=== PATIENT | female | born 1960 | race Caucasian/White ===

== ENCOUNTER 2018-01-11 19:16 | Emergency (ER) | payer OTHER ==
[~2018-01-11] VITALS: Ht 172.7 cm; Wt 60.0 kg
[2018-01-11 19:28] VITALS: BP 108/62; PULSE 76; RESP 15; TEMP 98.7; O2SAT 98
[2018-01-11] MEDS ORDERED: BUPR100CR PO (19:28)
[2018-01-11] MEDS ORDERED: SODIUM CHLORIDE 0.9% FLUSH 10 ML FLUSH IVF PRN (19:45)
[2018-01-11] MEDS ORDERED: SODIUM CHLORID 0.9% 500 ML INJ 500 ML IV ONE (19:45)
[2018-01-11 20:00] LABS: BASOPHIL % 0.4 % (0.0-2.0); EOSINOPHIL % 0.4 % (0.0-4.0); HEMATOCRIT 37.1 % (35.0-46.0); HEMOGLOBIN 13.2 GM/DL (11.6-15.3); LYMPH % 18.3 % (9.0-44.0); LYMPHOCYTE # 2.4 TH/MM3 (1.0-4.8); MEAN CELL VOLUME 93.2 FL (80.0-100.0); MEAN CORPUSCULAR HEMOGLOBIN 33.1 PG (27.0-34.0); MEAN CORPUSCULAR HGB CONC 35.5 % (32.0-36.0); MEAN PLATELET VOLUME 7.6 FL (7.0-11.0); MONO % 11.1 % (0.0-8.0); MONOCYTE # 1.4 TH/MM3 (0-0.9); NEUT % 69.8 % (16.0-70.0); PLATELET COUNT 265 TH/MM3 (150-450); RED BLOOD COUNT 3.99 MIL/MM3 (4.00-5.30); RED CELL DISTRIBUTION WIDTH 13.4 % (11.6-17.2); WHITE BLOOD COUNT 12.9 TH/MM3 (4.0-11.0)
[2018-01-11 20:08] LABS: PROTHROMBIN TIME - PATIENT 9.7 SEC (9.8-11.6)
--- NOTE | 2018-01-11 20:14 | RADRPT ---
EXAM DATE/TIME: 01/11/2018 19:57 [facility] COMPARISON: No previous studies available for comparison. INDICATIONS : Chest pain. MEDICAL HISTORY : None. SURGICAL HISTORY : None. ENCOUNTER: Initial ACUITY: 1 day PAIN SCORE: 5/10 LOCATION: Bilateral chest FINDINGS: Cardia megaly. Atelectasis versus scarring at the bases. No consolidation or effusion. Osseous struct ures are intact. Aortic calcification. CONCLUSION: Basilar atelectasis versus scarring. Tonio Muhammad MD on January 11, 2018 at 20:11 Board Certified Radiologist. This report was verified electronically.
--- NOTE | 2018-01-11 20:22 | PD ---
HPI Chief Complaint: Chest Pain Time Seen by Provider: 19:27 Travel History International Travel<30 days: No Contact w/Intl Traveler<30days: No Traveled to known affect area: No History of Present Illness HPI Patient is a 57-year-old female presenting to emergency department for evaluation of chest pain. 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 She sat in the cockpit and put oxygen on, she reports that the symptoms resolved. On the flight back to the [facility] pain developed again, she again put oxygen on but the flight was diverted here. Patient was given 1 aspirin and 2 nitroglycerin sublingually. She currently reports her pain is a 2 out of 10, symptom onset was fairly sudden, symptoms were moderate in severity. Patient's symptoms were alleviated with oxygen administration. Patient denies any medical history other than a heart murmur. She denies any activity intolerance. She is a current smoker but denies any illicit drug use. Patient denies any significant family history. No early heart disease in either parent or siblings. PFSH Past Medical History Medical History: Denies Significant Hx Medical other: Yes (Murmur) ?: Not Family History Family History: Negative Social History Alcohol Use: No Tobacco Use: Yes Substance Use: No Allergies-Medications (Allergen,Severity, Reaction): Coded Allergies: No Known Allergies (Verified Allergy, Unknown, 01/11/18) Reported Meds & Prescriptions Reported Meds & Active Scripts Active Reported Wellbutrin SR 12 HR (Bupropion HCl) 100 Mg Tab 100 Mg PO Q12HR Review of Systems Except as stated in HPI: all other systems reviewed are Neg Cardiovascular: Positive: Chest Pain or Discomfort Respiratory: Positive: Shortness of Breath Physical Exam Narrative GENERAL: Well-developed, well-nourished, alert female. Presenting in no acute distress. SKIN: Warm and dry. HEAD: Atraumatic. Normocephalic. EYES: Pupils equal and round. No scleral icterus. No injection or drainage. ENT: No nasal bleeding or discharge. Mucous membranes pink and moist. NECK: Trachea midline. No JVD. CARDIOVASCULAR: Regular rate and rhythm. 3/6 systolic murmur RESPIRATORY: No accessory muscle use. Clear to auscultation. Breath sounds equal bilaterally. GASTROINTESTINAL: Abdomen soft, non-tender, nondistended. Hepatic and splenic margins not palpable. MUSCULOSKELETAL: Extremities without clubbing, cyanosis, or edema. No obvious deformities. NEUROLOGICAL: Awake and alert. No obvious cranial nerve deficits. Motor grossly within normal limits. Five out of 5 muscle strength in the arms and legs. Normal speech. PSYCHIATRIC: Appropriate mood and affect; insight and judgment normal. Data Data Last Documented VS Vital Signs Date Time Temp Pulse Resp B/P (MAP) Pulse Ox O2 Delivery O2 Flow Rate FiO2 01/11/18 20:33 15 98 01/11/18 20:33 78 Room Air 01/11/18 19:28 98.7 108/62 (77) Orders Orders Electrocardiogram (01/11/18 19:40) Ckmb (Isoenzyme) Profile (01/11/18 19:40) Complete Blood Count With Diff (01/11/18 19:40) Comprehensive Metabolic Panel (01/11/18 19:40) Magnesium (Mg) (01/11/18 19:40) Prothrombin Time / Inr (Pt) (01/11/18 19:40) Act Partial Throm Time (Ptt) (01/11/18 19:40) Troponin I (01/11/18 19:40) Lipase (01/11/18 19:40) Chest, Single Ap (01/11/18 19:40) Ecg Monitoring (01/11/18 19:40) Bilateral Bp Monitoring (01/11/18 19:40) Iv Access Insert/Monitor (01/11/18 19:40) Oximetry (01/11/18 19:40) Oxygen Administration (01/11/18 19:40) Sodium Chloride 0.9% Flush (Ns Flush) (01/11/18 19:45) Sodium Chlorid 0.9% 500 Ml Inj (Ns 500 M (01/11/18 19:45) Ct Pulmonary Angiogram (01/11/18 ) Iohexol 350 Inj (Omnipaque 350 Inj) (01/11/18 21:06) Labs Laboratory Tests Test 01/11/18 19:45 White Blood Count 12.9 TH/MM3 Red Blood Count 3.99 MIL/MM3 Hemoglobin 13.2 GM/DL Hematocrit 37.1 % Mean Corpuscular Volume 93.2 FL Mean Corpuscular Hemoglobin 33.1 PG Mean Corpuscular Hemoglobin Concent 35.5 % Red Cell Distribution Width 13.4 % Platelet Count 265 TH/MM3 Mean Platelet Volume 7.6 FL Neutrophils (%) (Auto) 69.8 % Lymphocytes (%) (Auto) 18.3 % Monocytes (%) (Auto) 11.1 % Eosinophils (%) (Auto) 0.4 % Basophils (%) (Auto) 0.4 % Neutrophils # (Auto) 9.0 TH/MM3 Lymphocytes # (Auto) 2.4 TH/MM3 Monocytes # (Auto) 1.4 TH/MM3 Eosinophils # (Auto) 0.0 TH/MM3 Basophils # (Auto) 0.0 TH/MM3 CBC Comment DIFF FINAL Differential Comment Prothrombin Time 9.7 SEC Prothromb Time International Ratio 1.0 RATIO Activated Partial Thromboplast Time 30.2 SEC Blood Urea Nitrogen 20 MG/DL Creatinine 0.66 MG/DL Random Glucose 123 MG/DL Total Protein 7.7 GM/DL Albumin 3.8 GM/DL Calcium Level 9.3 MG/DL Magnesium Level 2.1 MG/DL Alkaline Phosphatase 77 U/L Aspartate Amino Transf (AST/SGOT) 20 U/L Alanine Aminotransferase (ALT/SGPT) 21 U/L Total Bilirubin 0.5 MG/DL Sodium Level 136 MEQ/L Potassium Level 3.2 MEQ/L Chloride Level 104 MEQ/L Carbon Dioxide Level 23.1 MEQ/L Anion Gap 9 MEQ/L Estimat Glomerular Filtration Rate 93 ML/MIN Total Creatine Kinase 66 U/L Troponin I LESS THAN 0.02 NG/ML Lipase 98 U/L MDM Medical Decision Making Medical Screen Exam Complete: Yes Emergency Medical Condition: Yes Interpretation(s) Vital Signs Date Time Temp Pulse Resp B/P (MAP) Pulse Ox O2 Delivery O2 Flow Rate FiO2 01/11/18 19:28 98.7 76 15 108/62 (58) 98 Differential Diagnosis ACS versus [place] versus pulmonary embolism versus metabolic abnormality versus pleurisy versus other Narrative Course Patient is a 57-year-old female presenting to the emergency for evaluation of midsternal chest pain. Her vital signs are stable, labs imaging ordered and pending. 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 She would be at risk for pulmonary embolism. CBC with a white count 12.9 Chemistry potassium 3.2, cardiac enzymes are negative 1 set. Oral potassium supplementation ordered. Chest x-ray shows basilar atelectasis versus scarring CT pulmonary angiogram shows no evidence for PE. There is atherosclerosis. Mediastinal adenopathy including a 2.6 cm mass in the mediastinum. There are scattered tiny pulmonary nodules present and nonspecific. This was discussed with patient. It was advised that she stay to be admitted under observation to continue to trend her enzymes, serial EKGs and for stress testing. Patient declined stating that she wanted to return home to [place] where she is from. She was advised on the risks. AMA: The risks of leaving against medical advice without further evaluation treatment were discussed with the patient. These risks include cardiac dysfunction, cardiac dysrhythmia, possible heart attack, possible stroke or . The patient indicated understanding of these risks and appeared to have the capacity to make this decision. Patient will be provided with a copy of her imaging results and labs. She is advised to go to the nearest emergency department should she have any worsening chest pain. She was advised to follow-up with her primary doctor upon return home to [place]. She verbalized understanding of instructions. Diagnosis Primary Impression: Left against medical advice Miryam Sweeney Jan 11, 2018 20:22
[2018-01-11 20:27] LABS: ALBUMIN 3.8 GM/DL (3.4-5.0); AST (GOT) 20 U/L (15-37); BICARBONATE 23.1 MEQ/L (21.0-32.0); BLOOD UREA NITROGEN 20 MG/DL (7-18); CALCIUM 9.3 MG/DL (8.5-10.1); CHLORIDE 104 MEQ/L (98-107); CREATININE 0.66 MG/DL (0.50-1.00); GLOMERULAR FILTRATION RATE 93 ML/MIN (>89); GLUCOSE,RANDOM 123 MG/DL (74-106); MAGNESIUM 2.1 MG/DL (1.5-2.5); SODIUM (NA) 136 MEQ/L (136-145)
[2018-01-11 20:28] LABS: ALT (GPT) 21 U/L (10-53)
[2018-01-11 20:31] LABS: ALKALINE PHOSPHATASE 77 U/L (45-117); TOTAL BILIRUBIN ADULT 0.5 MG/DL (0.2-1.0); TOTAL PROTEIN 7.7 GM/DL (6.4-8.2); TROPONIN I LESS THAN 0.02 NG/ML (0.02-0.05)
[2018-01-11 20:33] VITALS: RESP 15; O2SAT 98
[2018-01-11] MEDS ORDERED: IOHEXOL 350 MG/ML 10 ML VIAL (for RAD DIAG) IVCONTRAST ONE (21:06)
--- NOTE | 2018-01-11 21:15 | RADRPT ---
EXAM DATE/TIME: 01/11/2018 21:01 [facility] COMPARISON: No previous studies available for comparison. INDICATIONS : Shortness of breath and chest pain after a flight. IV CONTRAST: 72 cc Omnipaque 350 (iohexol) IV RADIATION DOSE: 9.67 CTDIvol (mGy) MEDICAL HISTORY : None SURGICAL HISTORY : None. ENCOUNTER: Initial ACUITY: 1 day PAIN SCALE: 5/10 LOCATION: chest TECHNIQUE: Volumetric scanning of the chest was performed using a pulmonary embolism protocol MIP images were re constructed. Using automated exposure control and adjustment of the mA and/or kV according to patien t size, radiation dose was kept as low as reasonably achievable to obtain optimal diagnostic quality images. DICOM format image data is available electronically for review and comparison. Follow-up recommendations for detected pulmonary nodules are based at a minimum on nodule size and pa tient risk factors according to Fleischner Society Guidelines. FINDINGS: Tiny left upper lobe noncalcified nodular focus measuring 3.1 mm. There is patchy infiltrate in the l ingula and left lower lobe and to a lesser sunrise lower lobe dependent atelectatic changes noted. Th ere is a noncalcified nodule suspected in the right middle lobe measuring 2.2 mm and 2.8 mm on 60. Th ere are numerous subcentimeter lymph nodes in the prevascular space, AP window, precarinal and subcar inal regions. There is an AP dimension on image 47 just to the left of the main pulmonary artery the mediastinum. No pleural or pericardial effusions are seen. Coronary calcification is noted. CONCLUSION: No evidence for pulmonary embolism. Atherosclerosis. Mediastinal adenopathy including a 2.6 cm mass i n mediastinum. Scattered tiny pulmonary nodules are present and nonspecific. Tonio Muhammad MD on January 11, 2018 at 21:10 Board Certified Radiologist. This report was verified electronically.
[2018-01-11] MEDS ORDERED: oxyCODONE/ACETAMINOPHEN 5 MG/325 MG TAB PO ONE (22:45)
[2018-01-11 23:01] VITALS: BP 155/85; PULSE 76; RESP 15; O2SAT 98
--- NOTE | 2018-01-12 12:20 | EKG ---
Date Performed: 01/11/2018 Time Performed: 19:28:19 PTAGE: 57 years EKG: Sinus rhythm NORMAL ECG NO PREVIOUS TRACING DOCTOR: Juno Suazo Interpretating Date/Time 01/12/2018 12:16:42
== END 2018-01-11 23:12 | disposition left against medical advice (07) ==
LOC: NEPC 19:16
DX: R07.9 Chest pain, unspecified (principal); R06.02 Shortness of breath; R91.8 Other nonspecific abnormal finding of lung field; F17.200 Nicotine dependence, unspecified, uncomplicated; Z53.20 Procedure and treatment not carried out because of patient's decision for unspecified reasons
CPT/HCPCS: 71045; 71275; 80053; 82550; 83690; 83735; 84484; 85025; 85610; 85730; 93005; 99285; J7040; Q9967